=== PATIENT | female | born 1950 | race African-American/Black ===

== ENCOUNTER 2016-09-18 06:25 | Day surgery (SDC) | payer OTHER, MEDICARE ==
[2016-09-17 17:39] VITALS: BMI 33.9
[2016-09-18] MEDS ORDERED: methylPREDNISolone ACET (DEPO) 80 MG/1 ML VIAL ONE (07:12)
[2016-09-18] MEDS ORDERED: BUPIVACAINE HCL/PF 0.25% (2.5MG/ML) 10 ML VIAL ONE (07:12)
[2016-09-18] MEDS ORDERED: PROPOFOL 20 ML ONE (07:28)
[2016-09-18] MEDS ORDERED: SUCCINYLCHOLINE CHLORIDE 200 MG/10 ML VIAL ONE (07:28)
[2016-09-18] MEDS ORDERED: LIDOCAINE HCL 1% PRESERVATIVE FREE - 30ML VIAL IJ ONE (08:20)
[2016-09-18] MEDS ORDERED: methylPREDNISolone ACET (DEPO) 80 MG/1 ML VIAL IJ ONE (08:20)
[2016-09-18] MEDS ORDERED: BUPIVACAINE HCL/PF 0.25% (2.5MG/ML) 10 ML VIAL IJ ONE (08:21)
--- NOTE | 2016-09-18 08:47 | OP ---
DATE OF OPERATION: 09/18/2016 PREOPERATIVE DIAGNOSIS: 1. 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 2. History of anterior cervical fusion C6-C7. POSTOPERATIVE DIAGNOSIS: 1. 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 2. History of anterior cervical fusion C6-C7. ATTENDING SURGEON: Fuad Wells MD PROCEDURE: 1. Left C7-T1 epidural steroid injection. 2. Intraoperative fluoroscopy. ANESTHESIA: Local with IV sedation. [employer]IATE: Cheryl Parrish CRNA INDICATIONS: The patient is a 66-year-old female with neck pain and cervical radiculopathy. Because of her intractable symptoms and failure of conservative treatment, she is here for her first epidural steroid injection of the year. The risks of the procedure include, but are not limited to, bleeding, infection, spinal headache, neurological injury, and paralysis. The patient understands the indications for the procedure, the procedure in detail, risks and benefits, and alternatives for treatments for her lumbar condition, and she wishes to proceed. No guarantees were given for a favorable outcome. PROCEDURE IN DETAIL: After the patient was taken to the operating room, she was placed in the prone position with a pillow under her chin, arms tucked on her sides. Posterior cervical region was cleaned with alcohol and prepped with Betadine. AP and lateral fluoroscopic imaging were used for localization. A skin wheal was raised with 5 mL of 1% Xylocaine overlying C7-T1. A 22-gauge spinal needle was inserted under AP and lateral fluoroscopic guidance from a left-sided approach to C7-T1. Loss of resistance technique was utilized, and there was no CSF or blood backflow. Depo-Medrol 80 mg and 1 mL of 0.25% Marcaine were injected. The needle was withdrawn and sterile bandage was applied. The patient tolerated the procedure well and was turned back to the supine position, moving bilateral upper and lower extremities well. She did not complain of a headache. The OR time-out procedure was followed. FUAD WELLS M.D. [id number]
--- NOTE | 2016-09-18 09:04 | PN ---
Progress Note (short form) - Note Progress Note: NEUROSURGERY Post injection AF, VSS Tolerating PO L arm pain better Motor at least 4+/5 B UE/LE Pt will contact office to advise us of her progress in a couple days Call immediately if increasing H/A, N/V, fever/chill or new neurological symptoms
[2016-09-18 09:35] VITALS: TEMP 98.4
[2016-09-18] MEDS ORDERED: DEXAMETHASONE SOD PHOSPHATE 4 MG/1 ML VIAL IVPB ONE (10:01)
[2016-09-18] MEDS ORDERED: ACETAMINOPHEN 1000 MG/100 ML VIAL (NON FORMULARY) IVPB ONE (10:02)
[2016-09-18] MEDS ORDERED: SODIUM CHLORIDE 250 ML IV ONE (10:30)
--- NOTE | 2016-09-18 12:15 | PN ---
Progress Note (short form) - Note Progress Note: NEUROSURGERY Post injection Son at bedside Given Decadron and IV tylenol and IVF Some H/A L > R; blurry vision; not position dependent Tolerating PO Able to stand up and take a few steps earlier L arm pain better PE: AF, 110/65 VSS; O2 sat 98-99% A/A/Ox4 No nuchal rigidity CV- RR; Lungs- CTA B; Abd- benign; Ext- no sign of DVT CN- intact II-XII including grossly intact VF to confrontation Motor at least 4+-5/5 B UE/LE Sensation- intact LT DTR- hyporeflexic Cerebellar- intact FTN B Head CT- mild atrophy, calciifed anterior falx, no acute bleed or ischemia noted Intact neurologically Discharge instructions given previously
[2016-09-18 13:39] VITALS: BP 128/78; PULSE 72
== END 2016-09-18 14:30 | disposition home or self-care (01) ==
LOC: JASU-SURG 06:25
PROVIDERS: ATTEND Neurological Surgery
PROC: 3E0S3BZ Introduction of Anesthetic Agent into Epidural Space, Percutaneous Approach (ICD-10-PCS; 2016-09-18)
PROC: B01BYZZ Fluoroscopy of Spinal Cord using Other Contrast (ICD-10-PCS; 2016-09-18)
PROC: 3E0S33Z Introduction of Anti-inflammatory into Epidural Space, Percutaneous Approach (ICD-10-PCS; principal; 2016-09-18 08:00)
DX: M48.03 Spinal stenosis, cervicothoracic region (principal); M54.12 Radiculopathy, cervical region; M96.1 Postlaminectomy syndrome, not elsewhere classified
CPT/HCPCS: 36415; 70450-TC; 70490-TC; 70496-TC; 70498-TC; 76000-TC; 80048; 85025; 99282-25

== ENCOUNTER 2017-02-05 00:39 | Emergency (ER) | payer OTHER, MEDICARE ==
[2017-02-05 01:08] VITALS: BP 139/89; PULSE 102; TEMP 98.6; BMI 33.9
[2017-02-05] MEDS ORDERED: AMOXICILLIN 500 MG CAPSULE (FP) PO ONE (01:09)
--- NOTE | 2017-02-05 01:09 | PDOC ---
History of Present Illness - General Chief Complaint: Ear Problem Stated Complaint: EARACHE Time Seen by Provider: 02/05/17 00:49 History Source: Patient - History of Present Illness Initial Comments: 02/05/17 01:04 66 year old female c/o left ear pain, nasal congestion/ sinus congestion x 2 days, as per patient went to bed woke up with serosanguinous drainage from left ear. denies fever, headache, chest pain, diaphoresis. pmhx: HTN, chronic back pain, Hyperlipidemia. Past History - Past Medical History Allergies/Adverse Reactions: Allergies Allergy/AdvReac Type Severity Reaction Status Date / Time No Known Drug Allergies Allergy Verified 02/05/17 01:07 Home Medications: Ambulatory Orders Atorvastatin Ca [Lipitor] 20 mg PO HS #0 tablet 01/16/13 Duloxetine [Cymbalta -] 60 mg PO DAILY #0 capsule. 01/16/13 Verapamil HCl [Verapamil Sr] 240 mg PO DAILY 02/15/13 Gabapentin [Neurontin] 300 mg PO TID 09/17/16 Hydrocodone Bit/Homatrop Me-Br [Hydrocod-Homatrop 5-1.5 mg Tab] 1 tab PO PRN PRN 09/17/16 Acetaminophen/Caffeine/Butalb [Fioricet -] 1 tab PO Q6H #30 tablet MDD 4 Amoxicillin - [Amoxicillin 875mg Tablet -] 875 mg PO BID #20 tablet 02/05/17 Oxymetazoline 0.05% Nasal Soln [Afrin -] 2 spray NS BID #1 spraybtl 02/05/17 Anemia: No Asthma: No Cancer: No Cardiac Disorders: No CVA: No COPD: No CHF: No Dementia: No Diabetes: Yes (DIET CONTROLLED) GI Disorders: No Disorders: No HTN: Yes Hypercholesterolemia: Yes Liver Disease: Yes (01/15 SPOT ON LIVER) Seizures: No Thyroid Disease: No - Surgical History Abdominal Surgery: No Appendectomy: No Cardiac Surgery: No Cholecystectomy: No Lung Surgery: No Neurologic Surgery: Yes (CERVICAL/THORASIC/LUMBAR FUSION) Orthopedic Surgery: No - Immunization History Td Vaccination: Yes Immunization Up to Date: No - Suicide/Smoking/Psychosocial Hx Smoking Status: No Smoking History: Never smoked Years of Tobacco Use: 0 Have you smoked in the past 12 months: No Number of Cigarettes Smoked Daily: 0 Cigars Per Day: 0 Hx Alcohol Use: No Drug/Substance Use Hx: No Substance Use Type: None Hx Substance Use Treatment: No Review of Systems - Review of Systems Able to Perform ROS?: Yes Is the patient limited Indian proficient: No Constitutional: No: Symptoms Reported, See HPI, Chills, Diaphoresis, Fever, Loss of Appetite, Malaise, Night Sweats, Weakness, Weight Stable, Unintentional Wgt. Loss, Unexplained wgt Loss, Other HEENTM: Yes: Ear Pain, Nose Congestion. No: Symptoms Reported, See HPI, Eye Pain, Blurred Vision, Tearing, Recent change in vision, Double Vision, Cataracts , Ocular Prothesis, Ear Discharge, Nose Pain, Tinnitus, Nose Bleeding, Hearing Loss, Throat Pain, Throat Swelling, Mouth Pain, Dental Problems, Difficulty Swallowing, Mouth Swelling, Other Respiratory: No: Symptoms reported, See HPI, Cough, Orthopnea, Shortness of Breath, SOB with Exertion, SOB at Rest, Stridor, Wheezing, Productive cough, Hemoptysis, Other Cardiac (ROS): No: Symptoms Reported, See HPI, Chest Pain, Edema, Irregular Heart Rate, Lightheadedness, Palpitations, Syncope, Chest Tightness, Other ABD/GI: No: Symptoms Reported, See HPI, Abdominal Distended, Abd. Pain w/ defecation, Blood Streaked Bowels, Constipated, Diarrhea, Difficulty Swallowing , Nausea, Poor Appetite, Poor Fluid Intake, Rectal Bleeding, Vomiting, Indigestion, Abdominal cramping, Tarry Stools, Other *Physical Exam - Physical Exam General Appearance: Yes: Appropriately Dressed HEENT: positive: Nasal Congestion, Rhinorrhea, Sinus Tenderness, Other (+ ruptured LEft TM, right TM bulging). negative: EOMI, JESUS, Normal ENT Inspection, Normal Voice, Symmetrical, TMs Normal, Pharynx Normal, Pale Conjunctivae, Photophobia, Scleral Icterus (R), Scleral Icterus (L), Muffled/ Hoarse voice, Pharyngeal Erythema, Tonsillar Exudate, Tonsillar Erythema, Orbits , Hearing Decreased, Hearing Grossly Normal, TM Bulging, TM Dull, TM Erythema, Lesions, Neal, Excessive drooling, Thrush Progress Note - Progress Note Progress Note: A: Ruptured TM P: Amoxicillin pain control decongestant *DC/Admit/Observation/Transfer Diagnosis at time of Disposition: Otitis media with spontaneous rupture of eardrum - Prescriptions Prescriptions: Oxymetazoline 0.05% Nasal Soln [Afrin -] 2 spray NS BID #1 spraybtl Amoxicillin - [Amoxicillin 875mg Tablet -] 875 mg PO BID #20 tablet - Patient Instructions Printed Discharge Instructions: Ruptured Eardrum Additional Instructions: take ibuprofen every 6 hours as needed for pain take amoxicillin as prescribed. take Afrin as prescribed. follow up with your doctor as soon as possible.
--- NOTE | 2017-02-05 01:14 | PDOC ---
*Physical Exam - Vital Signs Last Vital Signs Temp Pulse Resp BP Pulse Ox 98.6 F 102 H 14 139/89 98 02/05/17 01:07 02/05/17 01:07 02/05/17 01:07 02/05/17 01:07 02/05/17 01:07 Medical Decision Making - Medical Decision Making 02/05/17 01:14 agree with care from ASI[facility] Merida *DC/Admit/Observation/Transfer Diagnosis at time of Disposition: Otitis media with spontaneous rupture of eardrum - Prescriptions Prescriptions: Oxymetazoline 0.05% Nasal Soln [Afrin -] 2 spray NS BID #1 spraybtl Amoxicillin - [Amoxicillin 875mg Tablet -] 875 mg PO BID #20 tablet - Referrals Referrals: Kosta Zuniga MD [Primary Care Provider] - - Patient Instructions - Post Discharge Activity
[2017-02-05] MEDS ORDERED: ACETAMINOPHEN 325 MG TABLET (FP) PO ONE (01:15)
[2017-02-05] MEDS ORDERED: AMOXICILLIN 500 MG CAPSULE (FP) ONE (01:57)
[2017-02-05] MEDS ORDERED: ACETAMINOPHEN 325 MG TABLET (FP) ONE (01:58)
== END 2017-02-05 02:11 | disposition home or self-care (01) ==
LOC: JER 00:39
DX: H66.92 Otitis media, unspecified, left ear (principal); H72.92 Unspecified perforation of tympanic membrane, left ear; I10 Essential (primary) hypertension; E78.00 Pure hypercholesterolemia, unspecified
CPT/HCPCS: 99282-25

== ENCOUNTER 2018-09-11 20:24 | Emergency (ER) | payer OTHER, MEDICARE ==
[2018-09-11 20:30] VITALS: BP 137/82; PULSE 90; TEMP 97.8; BMI 34.5
[2018-09-11] MEDS ORDERED: ACETAMINOPHEN 325 MG TABLET (FP) PO ONE (20:30)
--- NOTE | 2018-09-11 20:30 | PDOC ---
Rapid Medical Evaluation Medical Evaluation: Allergies Allergy/AdvReac Type Severity Reaction Status Date / Time No Known Drug Allergies Allergy Verified 02/05/17 01:07 I have performed a brief in-person evaluation of this patient. The patient presents with a chief complaint of: L shoulder pain since May; in July, had MRI of L shoulder showing rotator cuff tear; is pending surgery in December, but states doctor did not give her any pain meds for her shoulder; took 600 mg of Motrin at 3 PM Pertinent physical exam findings: +Pain on movement of L shoulder I have ordered the following: Tylenol The patient will proceed to the ED for further evaluation. 09/11/18 20:26
[2018-09-11] MEDS ORDERED: LIDOCAINE 5% TOPICAL PATCH TP ONE (20:40)
[2018-09-11] MEDS ORDERED: ACETAMINOPHEN 325 MG TABLET (FP) ONE (22:05)
[2018-09-11] MEDS ORDERED: CYCLOBENZAPRINE HCL 10 MG TABLET (FP) ONE ×2 (22:05→22:11)
[2018-09-11] MEDS ORDERED: LIDOCAINE 5% TOPICAL PATCH ONE (22:07)
[2018-09-11] MEDS ORDERED: KETOROLAC TROMETHAMINE 60 MG/2 ML VIAL IM ONE (22:10)
--- NOTE | 2018-09-11 22:10 | PDOC ---
History of Present Illness - General Chief Complaint: Pain, Acute Stated Complaint: SHOULDER PAIN Time Seen by Provider: 09/11/18 20:26 Past History - Past Medical History Allergies/Adverse Reactions: Allergies Allergy/AdvReac Type Severity Reaction Status Date / Time No Known Drug Allergies Allergy Verified 09/11/18 20:30 Home Medications: Ambulatory Orders Atorvastatin Ca [Lipitor] 20 mg PO HS #0 tablet 01/16/13 Duloxetine [Cymbalta -] 60 mg PO DAILY #0 capsule. 01/16/13 Verapamil HCl [Verapamil Sr] 240 mg PO DAILY 02/15/13 Gabapentin [Neurontin] 300 mg PO TID 09/17/16 Hydrocodone Bit/Homatrop Me-Br [Hydrocod-Homatrop 5-1.5 mg Tab] 1 tab PO PRN PRN 09/17/16 Acetaminophen/Caffeine/Butalb [Fioricet -] 1 tab PO Q6H #30 tablet MDD 4 Amoxicillin - [Amoxicillin 875mg Tablet -] 875 mg PO BID #20 tablet 02/05/17 Oxymetazoline 0.05% Nasal Soln [Afrin -] 2 spray NS BID #1 spraybtl 02/05/17 Acetaminophen [Tylenol -] 650 mg PO Q6H #100 tablet 09/11/18 Acetaminophen [Tylenol] 650 mg PO Q4H #42 capsule 09/11/18 Cyclobenzaprine HCl [Flexeril -] 10 mg PO HS #10 tablet 09/11/18 Cyclobenzaprine HCl [Flexeril -] 10 mg PO HS #10 tablet 09/11/18 Methylprednisolone [Medrol Dose Ed] 4 mg PO ASDIR #21 tablet 09/11/18 Methylprednisolone [Medrol Dose De] 4 mg PO ASDIR #21 tablet 09/11/18 Anemia: No Asthma: No Cancer: No Cardiac Disorders: No CVA: No COPD: No CHF: No Dementia: No Diabetes: Yes (DIET CONTROLLED) GI Disorders: No Disorders: No HTN: Yes Hypercholesterolemia: Yes Liver Disease: Yes (01/15 SPOT ON LIVER) Seizures: No Thyroid Disease: No - Surgical History Abdominal Surgery: No Appendectomy: No Cardiac Surgery: No Cholecystectomy: No Lung Surgery: No Neurologic Surgery: Yes (CERVICAL/THORASIC/LUMBAR FUSION) Orthopedic Surgery: No - Immunization History Td Vaccination: Yes Immunization Up to Date: No - Suicide/Smoking/Psychosocial Hx Smoking Status: No Smoking History: Never smoked Years of Tobacco Use: 0 Have you smoked in the past 12 months: No Number of Cigarettes Smoked Daily: 0 Cigars Per Day: 0 Information on smoking cessation initiated: No Hx Alcohol Use: No Drug/Substance Use Hx: No Substance Use Type: None Hx Substance Use Treatment: No *Physical Exam - Vital Signs Last Vital Signs Temp Pulse Resp BP Pulse Ox 97.8 F 90 18 137/82 100 09/11/18 20:28 09/11/18 20:28 09/11/18 20:28 09/11/18 20:28 09/11/18 20:28 *DC/Admit/Observation/Transfer Diagnosis at time of Disposition: Cervical radiculopathy - Discharge Dispostion Disposition: HOME Condition at time of disposition: Stable Decision to Admit order: No - Prescriptions Prescriptions: Acetaminophen [Tylenol -] 650 mg PO Q6H #100 tablet Cyclobenzaprine HCl [Flexeril -] 10 mg PO HS #10 tablet Methylprednisolone [Medrol Dose Ed] 4 mg PO ASDIR #21 tablet - Referrals Referrals: Kosta Zuniga MD [Primary Care Provider] - - Patient Instructions Printed Discharge Instructions: DI for Cervical Radiculopathy Additional Instructions: You have neck pain which is causing your arm pain. This is called cervical radiculopathy. Please pickle sorter the steroids in the morning and take them as directed. You may also take Tylenol 650 mg every 4 hours as needed for pain. Please follow up with your orthopedic doctor on Friday. Return to the ER for any new or worsening symptoms. - Post Discharge Activity Forms/Work/School Notes: Back to Work
[2018-09-11] MEDS ORDERED: KETOROLAC TROMETHAMINE 60 MG/2 ML VIAL ONE (22:11)
== END 2018-09-11 22:34 | disposition home or self-care (01) ==
LOC: JERFT 20:24
PROC: 3E0233Z Introduction of Anti-inflammatory into Muscle, Percutaneous Approach (ICD-10-PCS; principal; 2018-09-11)
DX: M54.12 Radiculopathy, cervical region (principal); I10 Essential (primary) hypertension; E78.00 Pure hypercholesterolemia, unspecified; E11.9 Type 2 diabetes mellitus without complications; Z98.1 Arthrodesis status
CPT/HCPCS: 96372; 99281-25